=== PATIENT | female | born 1950 | race Caucasian/White ===

== ENCOUNTER 2019-01-19 13:34 | Emergency (ER) | payer MEDICAID ==
[~2019-01-19] VITALS: Ht 162.6 cm; Wt 92.0 kg
[~2019-01-19 13:34] MED LIST: ALBU2.5V3 NEB; ALBU8.5H8 INH; AMIT50TA3 PO; ASPI-817 PO; ATOR20TA38 PO; ESOM20CA PO; GUAI5SYR2 PO; HYDR25TA6 PO; LOSA50TA14 PO
[2019-01-19 14:02] VITALS: Ht 162.6 cm; Wt 92.0 kg
[2019-01-19] MEDS ORDERED: POTASSIUM CHLORIDE (SR) 20 MEQ TAB PO STA (18:05)
[2019-01-19] MEDS ORDERED: MAGNESIUM OXIDE 400 MG TAB PO ONE (18:30)
[2019-01-19 18:33] VITALS: BP 125/73; PULSE 96; RESP 18
== END 2019-01-19 18:41 | disposition home or self-care (01) ==
LOC: E/R 13:34
DX: J40 Bronchitis, not specified as acute or chronic (principal); E87.6 Hypokalemia; I10 Essential (primary) hypertension; F17.210 Nicotine dependence, cigarettes, uncomplicated; Z79.82 Long term (current) use of aspirin
CPT/HCPCS: 36415; 71045; 80048; 84484; 85025; 93005; Z7502; Z7610

== ENCOUNTER 2019-01-21 08:37 | Emergency (ER) | payer MEDICAID ==
[~2019-01-21] VITALS: Ht 162.6 cm; Wt 81.0 kg
[2019-01-21 08:44] VITALS: Ht 162.6 cm; Wt 81.0 kg
[2019-01-21] MEDS ORDERED: SOD CHLORIDE 0.9% 500 ML IV STA (09:18)
[2019-01-21] MEDS ORDERED: ALBUTEROL 0.083% (NEB) 2.5 MG/3 ML AMP HHN STA (09:18)
[2019-01-21 13:00] VITALS: BP 119/90; PULSE 96; RESP 20
== END 2019-01-21 13:48 | disposition home or self-care (01) ==
LOC: E/R 08:37
DX: J40 Bronchitis, not specified as acute or chronic (principal); I10 Essential (primary) hypertension; F17.210 Nicotine dependence, cigarettes, uncomplicated; Z79.82 Long term (current) use of aspirin
CPT/HCPCS: 36415; 71045; 80053; 83605; 83880; 84484; 85025; 87040; 93005; 94664; 96360; J7040; Z7502; Z7610